=== PATIENT | female | born 1955 | race Caucasian/White ===

== ENCOUNTER 2020-03-01 12:43 | Emergency (ER) | payer OTHER ==
[~2020-03-01] VITALS: Ht 162.6 cm; Wt 54.4 kg
[~2020-03-01 12:43] MED LIST: PROZAC40 MG PO
[2020-03-01 20:50] VITALS: BP 166/99
== END 2020-03-01 20:51 ==
LOC: ER 12:43
DX: R45.851 Suicidal ideations (principal); F17.210 Nicotine dependence, cigarettes, uncomplicated; F32.9 Major depressive disorder, single episode, unspecified; F41.9 Anxiety disorder, unspecified; Z79.899 Other long term (current) drug therapy; Z20.828 Contact with and (suspected) exposure to other viral communicable diseases

== ENCOUNTER 2020-03-01 21:30 | Inpatient (IN) | payer OTHER ==
[~2020-03-01] VITALS: Ht 162.6 cm; Wt 57.2 kg
--- NOTE | 2020-03-01 23:00 | NUR ---
Assumed care of patient this pm shift. Patient came to [facility] after Covid test was shown to be negative. Patient arrived via wheelchair. Patient very tearful crying and stated that her son does not know that she is here. Patient was very difficult to redirect. Patient was given Zyrprexa for anxiety initially but this seemed to not work. Later ativan was ordered and patient fell asleep. Patient states that she has been very depressed and that she has high anxiety along with insomnia. Patient denies actively wanting to kill herself but admits that she had mentioned it several times while she was drinking. Patient states that she drinks alcohol and smokes marijuana to self medicate. Patient is ambulatory, takes medications whole, and does have some vision issues. We will continue to monitor per hospital policy.
[2020-03-02 08:50] VITALS: BP 149/84
--- NOTE | 2020-03-02 10:29 | NUR ---
0700 ASSUMED CARE OF PATIENT, PATIENT IN BED SLEEPING AT THAT TIME. PATIENT OUT TO DAYROOM FOR BREAKFAST AND THEN BACK TO ROOM. 0920 RN SECURITY TO ROOM, PATIENT LYING IN BED WITH COVERS OVER HEAD. PATIENT IS AGUA CALIENTE. MEDICATIONS GIVEN WHOLE WITHOUT DIFFICULTY. C/O INCREASED ANXIETY. PROZAC, SCHEDULED MEDICATION GIVEN AT THAT TIME. PATIENT STATES "INCREASED NOISE, YELLING AND THE OLDER PEOPLE MAKE ME ANXIOUS". PATIENT VOICED UNABLE TO ATTEND GROUP AT THIS TIME DUE TO ANXIETY. PATIENT STATES "I FEEL LOCKED UP AND TREATED A CHILD NOT BEING ALLOWED TO HAVE CERTAIN THINGS, I HAVE NEVER HAD THIS TYPE OF CARE BEFORE". PATIENT REQUEST TO SPEAK WITH DR TO DISCUSS CARE. CONTINUE TO LAY IN BED.
--- NOTE | 2020-03-02 11:43 | NUR ---
PATIENT C/O INCREASED ANXIETY, HYDROXYZINE 25MG PRN MEDICATION GIVEN. PATIENT REQUESTING NICOTINE PATCH AND OTHER ANXIETY MEDICATION. DR SANCHEZ HERE, ORDERS RECIEVED.
[2020-03-02 13:13] LABS: BASOPHILS 3.4 % (0.0-2.0); EOSINOPHILS 1.2 % (0.0-3.0); HEMOGLOBIN 12.6 gm/dL (12.0-15.0); LYMPHOCYTES 30.7 % (24.0-44.0); MCH 34.4 pg (26.0-34.0); MCHC 33.2 g/dL (28.0-37.0); MCV 103.6 fL (80.0-100.0); MONOCYTES 8.6 % (1.0-8.0); PLATELET COUNT 284 thou/uL (150-400); POLYS 56.1 % (36.0-66.0); RBC 3.67 mil/uL (4.20-5.00); RDW 15.2 % (10.5-14.5); WBC 10.7 thou/uL (4.0-11.0)
[2020-03-02 13:27] LABS: ALBUMIN 3.9 g/dL (3.4-5.0); CALCIUM 9.1 mg/dL (8.5-10.1); CREATININE 0.9 mg/dL (0.6-1.0); MAGNESIUM 1.7 mg/dL (1.8-2.4); POTASSIUM 4.1 mmol/L (3.5-5.1); TOTAL BILIRUBIN 0.5 mg/dL (0.2-1.0); TOTAL PROTEIN 7.4 g/dL (6.4-8.2)
[2020-03-02 13:52] LABS: TSH 0.625 uIU/mL (0.358-3.740)
[2020-03-02 13:56] LABS: POIKILOCYTOSIS 1+; TARGET CELLS FEW
[2020-03-02 14:28] LABS: FOLIC ACID 23.3 ng/mL (8.6-58.9)
--- NOTE | 2020-03-02 14:43 | NUR ---
SEROQUEL 12.5 MG PO GIVEN FOR INCREASED ANXIETY PER ORDER. 5 MIN LATER PATIENT TO NURSES STATION ASKING FOR ICE TEA FOR DINNER. DOT NET ARCHITECT ORDERED ICE TEA FOR PATIENT. PATIENT THEN STATES "I AM 64 YEARS OLD AND EVERYONE NEEDS TO STOP TREATING ME IF I HAVE DEMENTIA". BEFORE DOT NET ARCHITECT COULD RESPOND PATIENT QUICKLY RETURNED TO ROOM UPSET. WILL CONTINUE TO OBSERVE
--- NOTE | 2020-03-02 15:21 | NUR ---
1510 PATIENT OUT TO DAYROOM, CONTINUES TO SIT QUIETLY ON COUCH WATCHING TV.
[2020-03-02 19:45] VITALS: BP 136/75
--- NOTE | 2020-03-03 04:57 | NUR ---
Assumed care of pt @ 1900. Pt calm et cooperative although anxious et tearful this shift. Took medications whole without difficulty. Ambulates the halls ad shay with steady gait. VSWNL. Health assessment with no abnormalities noted at present time. Denies SI/HI/AVH at present time. Isolated in room most of shift. Was given Hydroxyzine for anxiety and second dose of Seroquel. Currently resting in bed with eyes closed. Will continue to monitor per unit protocol.
[2020-03-03 07:41] VITALS: BP 128/62
--- NOTE | 2020-03-03 07:50 | NUR ---
PT VERY UPSET ABOUT BREAKFAST. PT STATED SHE ORDERED SCRAMBLED EGGS, GUNN, BISCUIT AND GRAVY, AND COFFEE. PT STATED SHE TAKES VITAMINS AND NEEDS TO HAVE FOOD ON HER STOMACH AND NOW SHE IS GOING TO BE HUNGRY UNTIL LUNCH. PT HAS A MEAN FACE AT THIS TIME.
[2020-03-03 08:20] VITALS: BP 128/62
--- NOTE | 2020-03-03 10:26 | NUR ---
SW met with pt to complete assessment. 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 Pt reported she is in need of a hearing aid. She reported her case management director Nkechi was assisting her, but has been unable to find affordable resources. Pt expressed an interested in AA groups. Pt was unable to remember Chandrika last name and phone number.
--- NOTE | 2020-03-03 11:30 | NUR ---
PT CAME TO DINING ROOM AND WANTED SOMETHING TO EAT. GAVE PT ICE CREAM AND HER MEDS. SHE WAS IN GROUP THIS AM AFTER BREAKFAST AND WENT TO BED AFTER. PT CRYING AND STATED THAT SHE IS ALL MESSED UP, SHE IS TALKING TO DR. SANCHEZ AND SAID THAT SHE IS NOT DEMENTED AND THAT SHE WANTED TO GO HOME. DR. SANCHEZ SAID SHE WILL TALK TO DR. KOROMA ABOUT HER DISCHARGING. PT VERY TEARFUL AND UPSET. SHE STATED SHE IS FALLING APART.
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
--- NOTE | 2020-03-03 14:51 | NUR ---
PT CAME OUT OF HER ROOM AND UPSET, SHE ASKED IF SHE HAD SOMETHING FOR ANXIETY. ADM LORAZEPAM 1MG PO FOR ANXIETY. TOLD PT THAT THIS [employer] PATROL IS TRYING TO CHARGE UP HER PHONE SO SHE CAN GET HER SONS NUMBER. SHE LAID BACK TO BED AND SAID THANK YOU.
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
[2020-03-03 19:04] VITALS: BP 127/70
[2020-03-03 19:45] VITALS: BP 127/70
--- NOTE | 2020-03-04 01:34 | NUR ---
PATIENT STAYED IN ROOM MOST OF EVENING. SHE APPEARED ANXIOUS, DISHEVELED, AND LOOKS DEPRESSED AND WAS TEARY AT TIMES SPEAKING WITH THIS NURSE. SHE IS A/0 X 4. PATIENT HAS SON (LAVON Chandler) THAT HAS AUTISM AND SHE CHECKS ON DAILY AND SHE HAD NOT BEEN ABLE TO RETRIEVE HIS NUMBER FROM HER PHONE BECAUSE IT WOULDN'T HOLD A CHARGE. CALLED DR KOROMA AND RECEIVED OK TO LET PATIENT HAVE PHONE TO TRY AND CHARGE. SON'S NUMBER RETRIEVED AND PATIENT'S PHONE AND CAN LINE EXAMINER PLACED BACK IN HER LOCKER. UNIT PHONE GIVEN TO PATIENT TO CALL HER SON AND SPEAK WITH HIM. SHE WAS SMILING AND THANKFUL THAT WE LET HER USE HER PHONE TO GET NUMBER. DR KOROMA CALLED TO EXPLAINE THAT SHE HAD TO DC PATIENT SEROQUEL D/T ELONGATED QTC ON EKG. SHE STARTED PATIENT ON REMERON 7.5MG TO HELP WITH SLEEP AND PRAZOSIN ORDERED FOR NIGHTMARES. PATIENT ALSO GIVEN HYDROXIZINE 25MG PO AT HS FOR ANXIETY. PATIENT HAS BEEN SLEEPING SINCE 2200. NO APPARENT SIGNS OF NIGHTMARES AT THIS TIME. PATIENT HAS BEEN COOPERATIVE AND TAKEN HER MEDS WHOLE WITHOUT INCIDENT. SHE STILL FEELS LIKE SHE DOESN'T BELONG HERE. SHE STATES SHE JUST MADE THE STATEMENT TO JUST LET HER BUT SHE DIDN'T MEAN SHE WANTED TO TAKE HER LIFE. SHE STATES SHE WAS JUST UPSET AT THE TIME. SHE DENIES SI/HI/AVH. BED IN LOW POSITION AND ROUTINE CHECKS TO ASSESS SAFETY AND STATUS OF PATIENT.
--- NOTE | 2020-03-04 07:13 | EKG ---
[facility] [place] [address] [place] [address] ELECTROCARDIOGRAM REPORT Name: DAVID MAR Santos Room #: [facility] ADM IN M.R.#: [id number] Admission: 03/01/20 Attend Phys: Franklin Hernandes DO Discharge: Date of : 59 Report #: [id number] THIS REPORT FOR: cc: LUBA - Haley family physician/PCP LUBA - Haley family physician/PCP Hector House MD [facility] ~ THIS REPORT FOR: //name// [facility] Test Date: 2020-03-03 Test Time: 07:17:20 Pat Name: ADVID MAR Department: Room: [facility] Gender: F Shoe Laster: GUSTAVO : 1955 Requested By: Florence Miranda Order Number: [id number] MD: Hector House Measurements Intervals Clay Rate: 77 P: 71 FL: 157 QRS: 55 QRSD: 147 T: 69 QT: 445 QTc: 504 Interpretive Statements Sinus rhythm Probable left atrial enlargement IVCD, consider atypical LBBB No previous ECG available for comparison Electronically Signed On 03-04-2020 7:13:20 MASON HELPER by Hector House [email or web address] <ELECTRONICALLY SIGNED> By: Hector House MD, FACC 03/04/20712 6 6 Hector House MD, [facility] /EPI
[2020-03-04 08:00] VITALS: BP 99/53
[2020-03-04 09:41] VITALS: BP 127/70
[2020-03-04 09:45] LABS: ABSOLUTE NEUTROPHILS 6.6 thou/uL (1.4-8.2); BASOPHILS 1.3 % (0.0-2.0); EOSINOPHILS 2.9 % (0.0-3.0); HEMOGLOBIN 11.2 gm/dL (12.0-15.0); LYMPHOCYTES 30.1 % (24.0-44.0); MCH 34.4 pg (26.0-34.0); MCV 104.4 fL (80.0-100.0); MONOCYTES 8.2 % (1.0-8.0); POLYS 57.5 % (36.0-66.0); RBC 3.26 mil/uL (4.20-5.00); RDW 14.9 % (10.5-14.5); WBC 11.4 thou/uL (4.0-11.0)
[2020-03-04 09:48] LABS: PLATELET COUNT 264 thou/uL (150-400)
[2020-03-04 10:30] LABS: CALCIUM 8.5 mg/dL (8.5-10.1); PHOSPHORUS 3.8 mg/dL (2.5-4.9); POTASSIUM 3.6 mmol/L (3.5-5.1)
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
--- NOTE | 2020-03-04 17:24 | NUR ---
AT SUPPER PT IS HAPPY ABOUT FOOD ITEMS SHE GOT AND EATS WELL. PT IS EASILY TEARFUL AND ANXIOUS STATES SHE IS WORRYING ABOUT LOSING HER APARTMENT SHE LEFT A WINDOW OPEN AND LEFT AN ASHTRAY WITH CIGARETTE BUTTS IN IT AND SHE IS NOT SUPPOSED TO BE SMOKING IN HER APARTMENT. ENC PT TO USE COPING SKILLS SHE IS GOING TO HAVE SOME THINGS BEYOND HER CONTROL.PT STATES SHE HAD SOME RELIEF FROM ANXIETY WITH THE ZYPREXA SHE TOOK EARLIER THIS AFTERNOON.
[2020-03-04 19:37] VITALS: BP 107/57
--- NOTE | 2020-03-04 22:51 | NUR ---
PT RESTING IN BED QUIETLY AT SHIFT CHANGE. PT NOT TEARFUL AND IN GOOD MOOD. A&O X3. DENIES PAIN AND NO ANXIETY OBSERVED. HEART SOUNDS NORMAL. LUNGS CTA RAMILA. BOWEL SOUNDS PRESENT X4 QUADS OVE SOFT, NON-DISTENDEND ABSOMEN. NO EDEMA OBSERVED. SKIN PINK CDI. DENIES SI/SH IDEATIONS. WILL CTM
--- NOTE | 2020-03-05 06:19 | NUR ---
Patient approached nurses desk around 2200 reporting increased anxiety rated 10/10. Asking if she had any further medications to help her anxiety and sleep. Offered PRN Olanzapine. Patient accepted. Patient was able to retire to bed and fall asleep after approximately 45 minutes.
[2020-03-05 07:42] VITALS: BP 116/59
--- NOTE | 2020-03-05 18:43 | NUR ---
0700 ASSUMED CARE OF PATIENT, PATIENT IN BED AT THAT TIME. PATIENT EATS 100% OF BREAKFAST. MEDICATION TAKEN WHOLE WITHOUT DIFFICULTY. PATIENT PRESENT IN AM GROUP THEN LEAVES, STATES "I CAN NOT HEAR WHAT IS BEING SAID". PATIENT ISOLATES IN ROOM MOST OF THE DAY. PATIENT C/O INCREASED AGGITATION AND ZYPREXA GIVEN X2 ON DAY SHIFT. PATIENT QUIET AND COOPERATIVE, DRNIES PAIN. LS CLEAR, BS ACTIVE.
[2020-03-05 19:15] VITALS: BP 110/56
--- NOTE | 2020-03-05 20:56 | NUR ---
Care of patient assumed at 1914: Patient seated in her room at start of shift. Patient came to dayroom independently around 1929. Patient sat up and watched TV for approximately 1 hour. Calm, pleasant and cooperative. Alert and oriented x4. Denies SI/HI/AH/VH. Denies depression. Reports anxiety rated 5/10. Requested PRN anxiety med before bed. Reported goal of wanting to be able to fall asleep without difficulty this shift. Denies pain and discomfort. Ate 100% HS snack. Took HS medication whole without difficulty. Patient retired to bed around 2044 and is laying quietly in bed at this time.
[2020-03-06 09:00] VITALS: BP 122/70
--- NOTE | 2020-03-06 09:13 | NUR ---
PT IN ROOM AFTER BREAKFAST. PT DENIES ANY PAIN. PT LUNGS CLEAR. PT IS COMPLAINING OF ANXIETY AND PT IS SUPPOSED TO DISCHARGE TO HOME TODAY. PT UP AD ALYSSA. PT TOOK MEDS WITHOUT ANY ISSUES.
[2020-03-06 09:42] VITALS: BP 110/56
[2020-03-06] MEDS ORDERED: PRAZOSIN HCL1 MG PO (10:48)
[2020-03-06] MEDS ORDERED: PROZAC40 MG PO (10:49)
[2020-03-06] MEDS ORDERED: REMERON 30 MG T30 M1 PO (10:50)
[2020-03-06] MEDS ORDERED: MAGNESIUM400 MG PO (10:50)
[2020-03-06] MEDS ORDERED: PEPCID20 MG PO (10:51)
[2020-03-06] MEDS ORDERED: PRENATAL PO (10:52)
[2020-03-06] MEDS ORDERED: B-12500 MCG PO (10:52)
[2020-03-06] MEDS ORDERED: ZYPREXA2.5 MG PO (11:19)
[2020-03-06 11:20] VITALS: BP 122/70
--- NOTE | 2020-03-06 11:24 | NUR ---
At the end of the day yesterday SWATHI received a phone call from Mio Jones with [facility] ([phone]) calling to assist with d/c planning. SWATHI and Dr. Hernandes gave an update on pt, and requested supports during the holiday season for pt. Mio said that he will have pt's caser up Rene Valentine ([phone]) or his kersey department supervisor Jeevan Martínez come out and meet pt. Dr. Hernandes told him 1300 would be good as she is due to discharge between 11am-12pm. Mio also said he will get pt enrolled into a dual dx program with [facility]. They will contact pt to schedule an appt. Today Swathi contacted Rene concerning pt's discharge. He said he was unaware of pt's discharge but he will go see her today. SWATHI team will continue to follow pt during her stay on this unit.
--- NOTE | 2020-03-06 11:27 | NUR ---
SWATHI D/C NOTE SWATHI created a SW handout for pt with Comprehensive contact information and the suicide hotline phone number. SWATHI explained the handout to pt and that her medical case worker will be out to see her. No other needs for SW team to address at this time.
--- NOTE | 2020-03-06 12:32 | NUR ---
PT FINISHED LUNCH. PT UNDERSTOOD D/C ORDERS. PT IS LEAVING VIA [facility]AXI TODAY. PT GIVEN SCIPTS AND ALSO VP TREASURER SHEET, A RUSSIAN RUBBER IS GOING TO MEET HER AT HER HOUSE TODAY. PT LEFT VIA AMBULATION WITH STAFF TO [facility].
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
== END 2020-03-06 12:32 | disposition home or self-care (01) | DRG 885 ==
LOC: SBH 21:30
PROVIDERS: Internal Medicine; ADMIT Psychiatry & Neurology Psychiatry; ATTEND Psychiatry & Neurology Psychiatry
DX: F33.2 Major depressive disorder, recurrent severe without psychotic features (principal); R45.851 Suicidal ideations; F43.10 Post-traumatic stress disorder, unspecified; F41.9 Anxiety disorder, unspecified; H54.8 Legal blindness, as defined in USA; F10.129 Alcohol abuse with intoxication, unspecified; Y90.7 Blood alcohol level of 200-239 mg/100 ml; F17.210 Nicotine dependence, cigarettes, uncomplicated; E83.42 Hypomagnesemia; Z91.5 Personal history of self-harm; Z71.6 Tobacco abuse counseling
CPT/HCPCS: 10880